=== PATIENT | female | born 1970 | race Caucasian/White ===

== ENCOUNTER 2019-01-21 05:56 | Outpatient (CLI) | payer OTHER ==
[2019-01-21 13:57] LABS: BHCG - Serum Negative (NEGATIVE); Pregs Control Background? CLEAR/WHITE (CLR/WHITE); Pregs Control Bar Appear? YES (CONTROL BAR)
--- NOTE | 2019-01-22 22:56 | EKG ---
Test Reason : Blood Pressure : / mmHG Vent. Rate : 055 BPM Atrial Rate : 055 BPM P-R Int : 128 ms QRS Dur : 074 ms QT Int : 414 ms P-R-T Axes : 037 058 056 degrees QTc Int : 396 ms Sinus bradycardia Otherwise normal ECG No previous ECGs available Confirmed by Lucas EUGENE ([id number]) on 01/22/2019 10:56:20 PM Referred By: PETER Confirmed By:Lucas EUGENE
== END 2019-01-21 05:57 | disposition home or self-care (01) ==
LOC: LABBT 05:56
PROVIDERS: ATTEND Orthopaedic Surgery
DX: Z01.818 Encounter for other preprocedural examination (principal); G57.61 Lesion of plantar nerve, right lower limb
CPT/HCPCS: 84703; 93005; 93010

== ENCOUNTER 2019-01-23 06:45 | Day surgery (SDC) | payer OTHER ==
[2019-01-21 10:19] VITALS: BMI 20.9
--- NOTE | 2019-01-22 08:43 | HP ---
HISTORY OF PRESENT ILLNESS: The patient is a 48-year-old female who has had persistent problems with her right foot since being stepped on in June of this year. She has had pain and burning in her foot and numbness in the second webspace. She has had symptoms of Brown's neuroma. She did obtain a temporary relief from injection of cortisone approximately 6 weeks ago, but does have recurrent symptoms that are now interfering with day-to-day activities including walking, getting dressed, and wearing shoe wear. PAST MEDICAL HISTORY: The patient is otherwise in good health. She has no major medical problems. MEDICATIONS: Takes control pills, multivitamin. ALLERGIES: SHE IS ALLERGIC TO PENICILLIN. FAMILY HISTORY: Otherwise unremarkable. SOCIAL HISTORY: Otherwise unremarkable. REVIEW OF SYSTEMS: Otherwise unremarkable. PHYSICAL EXAMINATION: GENERAL: Reveals a healthy female. HEENT: Unremarkable. NECK: Supple. CHEST: Clear. HEART: Regular rate and rhythm. ABDOMEN: Soft, nontender. PELVIC: Deferred. RECTAL: Deferred. BREASTS: Deferred. EXTREMITIES: Pertinent findings with the right foot, there is slight hallux valgus, but no tenderness. There is full range of motion. There is decreased sensation in the first and second toes. There is tenderness in the second webspace between the second and third metatarsal heads and pain with compression of the metatarsal heads. There are good distal pulses. Motor exam is intact. DIAGNOSTIC STUDIES: X-rays of the foot are normal. MRI scan of the right foot is normal. IMPRESSION: Brown's neuroma, second interspace, right foot. PLAN: Surgical excision of Brown's neuroma, second interspace, right foot. The nature of the surgery, length of recovery, and potential complications such as infection, loss of motion, incomplete relief, nerve injury, recurrence, and need for additional treatment and repeat surgery have been discussed in detail. Job ID: [id number]
[2019-01-23] MEDS ORDERED: Clindamycin/D5W 900 mg/50 ml Premix Bag ONE (07:07)
[2019-01-23] MEDS ORDERED: Bupivacaine PF 0.5% 30 ML VIAL ONE (08:14)
[2019-01-23] MEDS ORDERED: Bacitracin Zinc Ointment 30 gm TUBE ONE (08:14)
[2019-01-23] MEDS ORDERED: Midazolam HCl 2 mg/2 ml Vial ONE (08:21)
[2019-01-23] MEDS ORDERED: Ibuprofen 200 MG TAB PO PRN (09:57)
--- NOTE | 2019-01-23 10:54 | OP ---
DATE OF PROCEDURE: 01/23/2019 PREOPERATIVE DIAGNOSIS: Brown's neuroma, 2nd interspace, right foot. POSTOPERATIVE DIAGNOSIS: Brown's neuroma, 2nd interspace, right foot. PROCEDURE PERFORMED: Excision of Brown's neuroma, 2nd interspace, right foot. ANESTHESIA: General. DESCRIPTION OF PROCEDURE: After satisfactory anesthesia was induced in supine position, the patient was prepped and draped in the routine manner. The right leg was elevated and exsanguinated with an Esmarch bandage and the tourniquet was inflated to 250 mmHg. A 3-cm longitudinal incision was made over the dorsal aspect of the foot in the 2nd web space and carried down the subcutaneous tissues and bleeding points were controlled with Bovie cautery. Using sharp and blunt dissection, the interspace was developed. A lamina vegetable inspector was placed between the 2nd and 3rd metatarsal necks the metatarsals apart. The transverse metatarsal ligament was divided and the digital nerve between the 2nd and 3rd metatarsal heads identified and cut distally and the nerve then pulled distally and cut and allowed the proximal end to retract proximally between the bases of the 2nd and 3rd metatarsal heads. It appeared to be a complete excision. The wound was thoroughly irrigated. The wound was infiltrated with 10 mL of 0.5% plain Marcaine. The skin was closed with interrupted 3-0 nylon. A sterile bulky compressive dressing was applied and the tourniquet was deflated after approximately 22 minutes. The foot promptly pinked up. The patient was placed into a postop shoe, awakened, taken from the operative room in stable condition. There were no apparent intraoperative complications. The estimated blood loss was negligible. The patient will be discharged home in satisfactory condition, instructed on ice and elevation, use of crutches and given written wound care instructions. She was given a prescription for Jarratt 5 for pain, 28 tablets. She will be rechecked in my office in 10 to 14 days or sooner if there are any problems prior to that time. Job ID: [id number]
== END 2019-01-23 10:50 | disposition home or self-care (01) ==
LOC: SDC 06:45
PROVIDERS: ATTEND Orthopaedic Surgery
PROC: 01BG0ZZ Excision of Tibial Nerve, Open Approach (ICD-10-PCS; principal; 2019-01-23)
DX: G57.61 Lesion of plantar nerve, right lower limb (principal); Z88.0 Allergy status to penicillin; Z79.82 Long term (current) use of aspirin; Z79.899 Other long term (current) drug therapy
CPT/HCPCS: J2250; J3490; S0020